=== PATIENT | male | born 1975 | race Caucasian/White ===

== ENCOUNTER 2016-04-06 07:54 | Day surgery (SDC) ==
[2016-04-06] MEDS ORDERED: LIDOCAINE 1% 20 ML MDV ONE (08:22)
[2016-04-06] MEDS ORDERED: LIDOCAINE 1% 20 ML MDV ID ONE (08:22)
[2016-04-06 08:28] VITALS: TEMP 98.2
[2016-04-06] MEDS ORDERED: VERSED ONE (09:45)
[2016-04-06] MEDS ORDERED: DIPRIVAN 20 ML VIAL IVP ONE (09:45)
[2016-04-06 10:26] VITALS: BP 104/62
--- NOTE | 2016-04-07 09:10 | OP ---
INDICATIONS FOR PROCEDURE: 40-year-old gentleman presents for colonoscopy exam. He has a family history of colon polyps involving a brother in his 30s. He has a uncle who had colon cancer. This was on his father's side. MEDICATIONS: SEE ANESTHESIA NOTES. PROCEDURE: COLONOSCOPY, SNARE POLYPECTOMY. REPORT: The risks, benefits, alternatives and limitations were discussed in detail with the patient. Informed consent was obtained. After adequate sedation was achieved, digital rectal exam revealed good tone, no masses. The colonoscope was introduced in the rectum, was advanced under direct visual guidance to the cecum. The cecum was identified by the appendiceal orifice and IC valve. I then slowly withdrew the scope in a circumferential manner examining the mucosa quite carefully. I was able to retroflex the scope in the right colon and left colon to increase visualization. I looked on the proximal and distal side of folds and flexures as best as possible. In the transverse colon there is a 5 mm polyp that I destroyed using a snare. No other abnormalities were noted including on retroflex view of the anal canal. The withdrawal time was 9 minutes and 22 seconds. The patient tolerated the procedure well with stable vital signs and pulse oximetry throughout. The prep was good. IMPRESSION: 1. SMALL POLYP DESTROYED. RECOMMENDATIONS: 1. High fiber diet. 2. Office visit as needed. 3. Repeat colonoscopy examination again in 5 years, sooner if signs or symptoms would indicate otherwise. CC: DR. ISAAC SAM
== END 2016-04-06 11:14 | disposition home or self-care (01) ==
LOC: SURG 07:54
PROVIDERS: ATTEND Internal Medicine Gastroenterology
DX: Z80.0 Family history of malignant neoplasm of digestive organs (principal); K63.5 Polyp of colon; Z83.71 Family history of colonic polyps